=== PATIENT | female | born 1955 | race Two or more races ===

== ENCOUNTER → 2024-04-17 | Outpatient (CLI) | payer OTHER, MEDICAID ==
[2024-04-17 11:33] LABS: Albumin 4.1 g/dL (3.2-4.8); Alkaline Phosphatase 67 U/L (46-116); Anion Gap 4 (5-15); Aspartate Aminotransferase 14 U/L (13-40); BUN/Creatinine Ratio 19.5 (10.0-20.0); Bilirubin, Total 0.3 mg/dL (0.2-1.0); Blood Urea Nitrogen 15 mg/dL (9-23); Carbon Dioxide 29 mmol/L (20-31); Chloride 108 mmol/L (98-107); Cholesterol 186 mg/dL (< 200); Glucose 87 mg/dL (74-106); HDL Cholesterol 42 mg/dL (40-59); LDL Cholesterol 113 mg/dL (< 100); Potassium 4.4 mmol/L (3.5-5.1); Sodium 141 mmol/L (136-145); Total Protein 6.2 g/dL (5.7-8.2); Triglycerides 196 mg/dL (< 150)
[2024-04-17 11:40] LABS: Alanine Aminotransferase < 9 U/L (7-40)
== END | disposition home or self-care (01) ==
LOC: LAB 10:40
PROVIDERS: ATTEND Internal Medicine
DX: E78.5 Hyperlipidemia, unspecified (principal)
CPT/HCPCS: 36415; 80053; 80061

== ENCOUNTER → 2024-05-17 | Outpatient (CLI) | payer OTHER, MEDICAID ==
--- NOTE | 2024-05-17 17:28 | DVHSR ---
APPROVED REPORT EXAM: Two-dimensional and M-mode echocardiogram with Doppler and color Doppler. INDICATION Pre-Op RISK FACTORS Height: 63, Weight: 137 DIMENSIONS LVDd (3.8-5.7cm)LA (2D)4.0 (1.9-4.0cm)Aortic Root3.1 (2.0-3.7cm) LVDs (2.5-4.0cm)LA (MM) (1.9-4.0cm)Aortic Cusp Exc0.6 (1.5-2.0cm) EF (%) 60.0 (55-70%)Rt. Atrium3.8 (1.9-4.0cm)Asc. Aorta cm Mitral Valve MitralMitral Stenosis E wave0.91m/sMV Mean GR.103mmHg A wave1.00m/sMV Peak GR.147mmHg E/A ratio0.92D MVAcm2 DECEL [id number] 1/2 [place] Aortic Valve Aortic ValveAortic Stenosis V10.96m/Monica Mean GR.8mmHg V21.89m/Monica Peak GR.14mmHg LVOT Diameter1.8 (1.8-2.4cm)Doppler AVA1.29cm2 Pulmonic Valve V20.89m/s Tricuspid Valve TR Velocity2.46m/s [id number] Conclusion Technically good study. Sinus rhythm. Concentric LVH. Mild left atrial enlargement. Mild aortic root enlargement. Moderate mitral annular calcification at the base of the posterior mitral leaflet. Mild aortic scler osis without stenosis. The tricuspid and pulmonic appear to be structurally normal. EF of 60% with normal RV function. Mild tricuspid and mitral insufficiency. Mild pulmonic insufficiency. No pericardial effusion masses or vegetations.
== END | disposition home or self-care (01) ==
LOC: XYW 08:37
PROVIDERS: ATTEND Internal Medicine
DX: Z01.810 Encounter for preprocedural cardiovascular examination (principal); I08.3 Combined rheumatic disorders of mitral, aortic and tricuspid valves; I70.0 Atherosclerosis of aorta
CPT/HCPCS: 93306

== ENCOUNTER → 2024-10-01 | Outpatient (CLI) | payer OTHER, MEDICAID ==
[2024-10-01 10:43] LABS: Urine Bacteria None Seen /hpf (None Seen)
[2024-10-01 10:54] LABS: Basophils # (auto) 0.1 10 ^3/uL (0-0.2); Eosinophils # (auto) 0.5 10 ^3/uL (0-0.8); Eosinophils % (auto) 8.8 % (0.0-7.0); Hematocrit 34.7 % (36.0-46.0); Hemoglobin 12.2 g/dL (12.2-16.2); Lymphocytes # (auto) 1.1 10 ^3/uL (0.4-5.4); Lymphocytes % (auto) 22.2 % (10.0-50.0); Mean Corpuscular Hemoglobin 31.6 pg (28.0-32.0); Mean Corpuscular Hgb Conc. 35.3 g/dL (32.0-36.0); Mean Corpuscular Volume 89.7 fL (80.0-100.0); Monocytes # (auto) 0.4 10 ^3/uL (0-1.3); Monocytes % (auto) 7.3 % (0.0-12.0); Neutrophils # (auto) 3.1 10 ^3/uL (1.6-8.6); Neutrophils % (auto) 60.7 % (37.0-80.0); Platelet Count (auto) 275 10^3/uL (140-450); Red Blood Cells 3.86 10^6/uL (4.0-5.20); Red Cell Distribution Width 13.5 % (11.8-14.3); White Blood Cell 5.2 10^3/uL (4.4-10.8)
[2024-10-01 11:18] LABS: Alanine Aminotransferase 18 U/L (7-40); Albumin 4.3 g/dL (3.2-4.8); Alkaline Phosphatase 77 U/L (46-116); Anion Gap 4 (5-15); Aspartate Aminotransferase 22 U/L (13-40); BUN/Creatinine Ratio 13.2 (10.0-20.0); Blood Urea Nitrogen 10 mg/dL (9-23); Calcium 10.1 mg/dL (8.7-10.4); Chloride 107 mmol/L (98-107); Cholesterol 185 mg/dL (< 200); Glucose 84 mg/dL (74-106); HDL Cholesterol 55 mg/dL (40-59); Potassium 4.7 mmol/L (3.5-5.1); Sodium 143 mmol/L (136-145); Total Protein 6.5 g/dL (5.7-8.2); Triglycerides 88 mg/dL (< 150)
[2024-10-01 11:19] LABS: Bilirubin, Total 0.5 mg/dL (0.2-1.0); Carbon Dioxide 32 mmol/L (20-31); LDL Cholesterol 118 mg/dL (< 100)
[2024-10-01 11:35] LABS: Urine Blood Negative /uL (Negative); Urine Clarity Clear (Clear); Urine Color Light-Yellow (Yellow); Urine Protein, UAD Negative (Negative); Urine Squamous Epithelial Cell None Seen /hpf (<5); Urine Urobilinogen Normal (Negative)
== END | disposition home or self-care (01) ==
LOC: LAB 10:26
PROVIDERS: ATTEND Internal Medicine
DX: I10 Essential (primary) hypertension (principal); E83.52 Hypercalcemia; E78.5 Hyperlipidemia, unspecified; R73.9 Hyperglycemia, unspecified
CPT/HCPCS: 36415; 80053; 80061; 81001; 83036; 84443; 85025

== ENCOUNTER → 2024-12-04 | Outpatient (CLI) | payer OTHER, MEDICAID ==
[~2024-12-04] VITALS: Ht 160 cm; Wt 63.0 kg
[2024-12-04] MEDS: REGADENOSON 0.4 MG/5 ML SYRG IV ONE ×2 (12:00→12:10)
--- NOTE | 2024-12-06 11:24 | DVHSR ---
APPROVED REPORT Exam: Nuclear Stress Test Indication: Chest pain BMI: 0 Medical History Medical History: HTN, DYSLIPIDEMIA , SKIN CA Stress Test Details Stress Test: Pharmacologic stress testing performed using 0.4 mg of regadenoson per 5 mL given IV ov er 10 seconds. HR Resting HR: 62 bpmMax Heart Rate (APMHR): 153.689160 bpm Max HR Achieved: 95 bpmTarget HR (85% APMHR): 130.772132 bpm % of APMHR: 62.09 Recovery HR: 73 bpm BP Resting BP: 107/70 mmHg Recovery BP: 109/68 mmHg ECG Resting ECG: Sinus Rhythm Clinical Reason for Termination: Completed protocol Stress ECG Conclusion lvef 74% normal perfusion scan no ischemia NM EXAM: Myocardial Perfusion REST/STRESS Imaging Protocol: Rest Tc-99m/Stress Tc-99m 1 day Resting Data Rest SPECT myocardial perfusion imaging was performed in supine position 60 minutes following the int ravenous injection of 11.1 mCi of Tc-99m Sestamibi. Time of rest injection: 09:40 Date: 12/04/2024 Time of rest imagin:40 Date: 12/04/2024 Administration Route: IV Administration Site: Left AC Pharmacologic Stress Pharmacologic stress test was performed by injecting Regadenoson 0.4 mg IV push followed by the intra venous injection of 30.9 mCi of Tc-99m Sestamibi. Time of stress injection: 12:00 Date: 12/04/2024 Time of stress imagin:00 Date: 12/04/2024 Administration Route: IV Administration Site: Left AC Gated Stress SPECT was performed 60 minutes after stress injection. The images were gated to evaluate regional wall motion and calculate left ventricular ejection fracti on. Stress only was performed in the Supine position. Nuclear Conclusion Nuclear Findings: negative for ischemia lvef 74% normal perfusion scan no ischemia
== END | disposition home or self-care (01) ==
LOC: XYW 10:04
PROVIDERS: ATTEND Internal Medicine
DX: R07.9 Chest pain, unspecified (principal); I10 Essential (primary) hypertension; E78.5 Hyperlipidemia, unspecified; Z87.81 Personal history of (healed) traumatic fracture
CPT/HCPCS: 78452; 93017; A9500; J2785

== ENCOUNTER → 2025-04-11 | Outpatient (CLI) | payer OTHER, MEDICAID ==
[2025-04-11 13:38] LABS: Alanine Aminotransferase 15 U/L (7-40); Albumin 4.6 g/dL (3.2-4.8); Alkaline Phosphatase 87 U/L (46-116); Anion Gap 6 (5-15); BUN/Creatinine Ratio 16.5 (10.0-20.0); Bilirubin, Total 0.5 mg/dL (0.2-1.0); Blood Urea Nitrogen 15 mg/dL (9-23); Calcium 10.3 mg/dL (8.7-10.4); Carbon Dioxide 29 mmol/L (20-31); Glucose 92 mg/dL (74-106); HDL Cholesterol 54 mg/dL (40-59); Sodium 142 mmol/L (136-145); Total Protein 7.2 g/dL (5.7-8.2); Triglycerides 134 mg/dL (< 150)
[2025-04-11 13:40] LABS: Chloride 107 mmol/L (98-107); Cholesterol 207 mg/dL (< 200); Potassium 5.2 mmol/L (3.5-5.1)
== END | disposition home or self-care (01) ==
LOC: LAB 12:04
PROVIDERS: ATTEND Internal Medicine
DX: I11.9 Hypertensive heart disease without heart failure (principal); E78.5 Hyperlipidemia, unspecified; I51.89 Other ill-defined heart diseases; E66.9 Obesity, unspecified
CPT/HCPCS: 36415; 80053; 80061; 83036